=== PATIENT | male | born 1995 | race Hispanic/Latino ===

== ENCOUNTER 2022-02-20 06:48 | Emergency (ER) | payer OTHER ==
[~2022-02-20] VITALS: Ht 177.8 cm; Wt 79.1 kg
[2022-02-20 06:48] VITALS: BP 136/77
[2022-02-20] MEDS ORDERED: BUPR150T12 PO (06:53)
[2022-02-20] MEDS ORDERED: predniSONE 20 MG TAB PO ONE (07:55)
[2022-02-20] MEDS ORDERED: TRIA1CR80 TOP (07:55)
[2022-02-20] MEDS ORDERED: PRED20TA PO (07:55)
== END 2022-02-20 08:08 | disposition home or self-care (01) ==
LOC: M ED 06:48
DX: T78.40XA Allergy, unspecified, initial encounter (principal); R21 Rash and other nonspecific skin eruption
CPT/HCPCS: 99283; J7512

== ENCOUNTER 2023-05-03 10:50 | Emergency (ER) | payer OTHER ==
[~2023-05-03] VITALS: Ht 177.8 cm; Wt 84.1 kg
[~2023-05-03 10:50] MED LIST: BUPR150T12 PO; PRED20TA PO; TRIA1CR80 TOP
[2023-05-03] MEDS ORDERED: IBUP200T46 PO (10:58)
[2023-05-03] MEDS ORDERED: KETOROLAC 60MG 2ML VIAL IM ONE (11:40)
[2023-05-03] MEDS ORDERED: ACETAMINOPHEN TAB 650MG DOSE (2X325MG) PO ONE (11:40)
[2023-05-03] MEDS ORDERED: methocarbamoL 750 MG TAB PO ONE (11:40)
[2023-05-03] MEDS ORDERED: METH-1165 PO (12:45)
[2023-05-03] MEDS ORDERED: KETO10TAB PO (12:45)
[2023-05-03 12:55] VITALS: BP 132/80; TEMP 98.2; O2SAT 98
== END 2023-05-03 12:58 | disposition home or self-care (01) ==
LOC: M ED 10:50
DX: S13.4XXA Sprain of ligaments of cervical spine, initial encounter (principal); X58.XXXA Exposure to other specified factors, initial encounter; Y92.009 Unspecified place in unspecified non-institutional (private) residence as the place of occurrence of the external cause; Y93.89 Activity, other specified; Y99.8 Other external cause status; M62.830 Muscle spasm of back
CPT/HCPCS: 96372; 99283; J1885